=== PATIENT | female | born 1965 | race Caucasian/White ===

== ENCOUNTER 2017-09-25 10:15 | Emergency (ER) | payer OTHER ==
[2017-09-25 10:23] VITALS: BP 141/65; PULSE 62; TEMP 98.6; BMI 21.7
[2017-09-25] MEDS ORDERED: IBUPROFEN 600 MG TABLET (FP) PO ONE ×2 (10:28→10:30)
--- NOTE | 2017-09-25 10:34 | PDOC ---
History of Present Illness - General Chief Complaint: Injury Stated Complaint: LEFT FOOT INJURY Time Seen by Provider: 09/25/17 10:20 - History of Present Illness Initial Comments: 09/25/17 10:29 This 42-year-old female with a history of hypertension and hyperlipidemia presents with left ankle pain after tripping on a step yesterday. She reports the pain initially was mild and localized around the front of her foot but overnight the pain and swelling of her left foot became worse prompting her to come into the emergency department today she's been able to ambulate on her foot since the trip yesterday. No treatments tried. Denies any other injuries or fall. Denies head strike. Has been in her usual state of good health, denies any fevers, chills, chest pain, shortness of breath, abdominal pain, nausea, vomiting, diarrhea, urinary symptoms. Reports currently she is being worked up for abnormal vaginal bleeding at [facility]. He reports tubal ligation a few years ago and a negative test last week. Reports she is due for a endometrial biopsy in 3 days. Past History - Past Medical History Allergies/Adverse Reactions: Allergies Allergy/AdvReac Type Severity Reaction Status Date / Time No Known Drug Allergies Allergy Verified 09/25/17 10:17 Home Medications: Ambulatory Orders Atorvastatin Ca [Lipitor -] 40 mg PO HS 05/05/15 Losartan Potassium [Cozaar -] 25 mg PO DAILY 05/06/15 Asthma: Yes ("MILD") COPD: No HTN: Yes Hypercholesterolemia: Yes - Suicide/Smoking/Psychosocial Hx Smoking History: Never smoked Have you smoked in the past 12 months: No Information on smoking cessation initiated: No Hx Alcohol Use: No Drug/Substance Use Hx: No Substance Use Type: None Hx Substance Use Treatment: No Review of Systems - Review of Systems Comments:: 09/25/17 10:31 GENERAL/CONSTITUTIONAL: No fever or chills. No weakness. HEAD, EYES, EARS, NOSE AND THROAT: No change in vision. No ear pain or discharge. No sore throat. GASTROINTESTINAL: No nausea, vomiting, diarrhea or constipation. GENITOURINARY: No dysuria, frequency, or change in urination. CARDIOVASCULAR: No chest pain or shortness of breath. RESPIRATORY: No cough, wheezing, or hemoptysis. MUSCULOSKELETAL: +L foot pain. No neck or back pain. SKIN: No rash NEUROLOGIC: No headache, vertigo, loss of consciousness, or change in strength/ sensation. ENDOCRINE: No increased thirst. No abnormal weight change. HEMATOLOGIC/LYMPHATIC: No anemia, easy bleeding, or history of blood clots. ALLERGIC/IMMUNOLOGIC: No hives or skin allergy. *Physical Exam - Vital Signs Last Vital Signs Temp Pulse Resp BP Pulse Ox 98.6 F 62 18 141/65 100 09/25/17 10:15 09/25/17 10:15 09/25/17 10:15 09/25/17 10:15 09/25/17 10:15 - Physical Exam Comments: 09/25/17 10:32 GENERAL: Awake, alert, and fully oriented, in no acute distress HEAD: No signs of trauma EYES: PERRLA, EOMI, sclera anicteric, conjunctiva clear ENT: Auricles normal inspection, hearing grossly normal, nares patent, oropharynx clear without exudates. Moist mucosa NECK: Normal ROM, supple, no lymphadenopathy, JVD, or masses LUNGS: Breath sounds equal, clear to auscultation bilaterally. No wheezes, and no crackles HEART: Regular rate and rhythm, normal S1 and S2, no murmurs, rubs or gallops ABDOMEN: Soft, nontender, normoactive bowel sounds. No guarding, no rebound. No masses EXTREMITIES: Normal range of motion, 2+ DP and TP pulses b/l. Full strength and sensation of all extremities. No clubbing or cyanosis. +edema and ttp along forefront of L foot and L distal posterior aspect of lateral malleolus. NEUROLOGICAL: Normal speech, cranial nerves intact, negative pronator drift, 5/ 5 strength in all 4 extremities, normal sensation to light touch in all 4 extremities, normal cerebellar exam, gait deferred SKIN: Warm, Dry, normal turgor, no rashes or lesions noted. ED Treatment Course - RADIOLOGY Radiology Studies Ordered: Category Date Time Status ANKLE & FOOT-LEFT* [RAD] Stat Radiology 09/25/17 10:27 Ordered Medical Decision Making - Medical Decision Making 09/25/17 10:34 51-year-old female history of hypertension hyperlipidemia presents with left foot injury. Will obtain x-ray to evaluate for fracture and motrin for pain control. 09/25/17 12:44 X-ray negative for fracture. Pain well controlled with motrin. Deepak wrap and hard soled shoe applied, pt given crutches for comfort and to follow up with Dr. Poon with 1-3 days. I discussed the physical exam findings, ancillary test results and final diagnoses with the patient. I answered all of the patient's questions. The patient was satisfied with the care received and felt comfortable with the discharge plan and treatment plan. The patient will call their primary care physician within 24 hours to arrange follow-up and will return to the Emergency Department with any new, persistent or worsening symptoms. *DC/Admit/Observation/Transfer Diagnosis at time of Disposition: Foot injury - Discharge Dispostion Disposition: HOME Condition at time of disposition: Stable Admit: No - Referrals Referrals: Denny Poon MD [Staff Physician] - - Patient Instructions Printed Discharge Instructions: Ankle Sprain Additional Instructions: Call Dr. Poon's office today for follow-up appointment with an orthopedic doctor within 1- 3 days. Take ibuprofen 600 mg every 6 hours for pain and swelling. Apply ice to your foot 2-3 times a day. Return to emergency department if you have any new, worsening or concerning symptoms. - Post Discharge Activity - Attestations Physician Attestion: 09/25/17 12:52 I, Dr. Gio Plasencia MD, attest that this document has been prepared under my direction and personally reviewed by me in its entirety. I further attest, that it accurately reflects all work, treatment, procedures and medical decision -making performed by me.
== END 2017-09-25 13:09 | disposition home or self-care (01) ==
LOC: FER 10:15
DX: S99.922A Unspecified injury of left foot, initial encounter (principal); X58.XXXA Exposure to other specified factors, initial encounter; Y93.89 Activity, other specified; Y92.9 Unspecified place or not applicable; E78.5 Hyperlipidemia, unspecified; I10 Essential (primary) hypertension
CPT/HCPCS: 73610-TC-LT; 73630-TC-LT; 99283-25

== ENCOUNTER 2019-10-17 11:45 | Day surgery (SDC) | payer OTHER ==
[2019-10-14 16:52] VITALS: BMI 21.6
[2019-10-17 13:11] VITALS: TEMP 97.3
[2019-10-17 14:43] VITALS: BP 117/68; PULSE 57
== END 2019-10-17 14:14 | disposition home or self-care (01) ==
LOC: JASU-ENDO 11:45
PROVIDERS: ATTEND Internal Medicine Gastroenterology
PROC: 0DBM8ZX Excision of Descending Colon, Via Natural or Artificial Opening Endoscopic, Diagnostic (ICD-10-PCS; principal; 2019-10-17 12:30)
DX: Z12.11 Encounter for screening for malignant neoplasm of colon (principal); K64.8 Other hemorrhoids; K57.30 Diverticulosis of large intestine without perforation or abscess without bleeding; D12.4 Benign neoplasm of descending colon
CPT/HCPCS: 81025

== ENCOUNTER 2021-03-29 11:49 | Emergency (ER) | payer OTHER ==
[2021-03-29 12:05] VITALS: BP 157/84; PULSE 54; TEMP 98.7; BMI 21.6
[2021-03-29 12:36] LABS: BASO % 0.9 % (0-2.0); EOS % 0.7 % (0-4.5); HEMOGLOBIN 15.8 GM/dl (10.7-15.3); LYMPH % 15.6 % (8-40); MCH 29.5 pg (25.7-33.7); MCHC 33.6 g/dl (32.0-36.0); MEAN CELL VOLUME 87.8 fl (80-96); MONO % 4.9 % (3.8-10.2); NEUT % 77.9 % (42.8-82.8); PLATELET COUNT 251 K/MM3 (134-434); RBC 5.35 M/mm3 (3.60-5.2); RDW 15.8 % (11.6-15.6); WHITE BLOOD COUNT 6.3 K/mm3 (4.0-10.8)
[2021-03-29 12:45] LABS: ALBUMIN 4.6 g/dl (3.4-5.0); ANION GAP 8 MMOL/L (8-16); BILIRUBIN,TOTAL 1.2 mg/dl (0.2-1); CHLORIDE 100 mmol/L (98-107); CO2 29 mmol/L (21-32); CREATININE 0.6 mg/dl (0.55-1.3); GLUCOSE,RANDOM 95 mg/dl (74-106); SGOT/AST 23 U/L (15-37); SGPT/ALT 21 U/L (13-61); SODIUM 137 mmol/L (136-145)
[2021-03-29 12:47] LABS: ALK PHOS 49 U/L (45-117); TOT PROT 7.7 g/dl (6.4-8.2)
[2021-03-29] MEDS ORDERED: SODIUM CHLORIDE 0.9% 500 ML INFUS.BAG IV ONE (13:00)
[2021-03-29 13:47] LABS: LIPASE 132 U/L (73-393)
== END 2021-03-29 14:54 | disposition home or self-care (01) ==
LOC: FER 11:49
DX: R10.13 Epigastric pain (principal)
CPT/HCPCS: 36415; 71046-TC-FY; 80053; 81003; 82550; 83690; 84484; 85025; 87086; 87186; 93005; 99285-25

== ENCOUNTER 2021-04-03 13:45 | Inpatient (IN) | payer OTHER ==
[2021-04-03 14:02] VITALS: BMI 21.6
[2021-04-03] MEDS ORDERED: SODIUM CHLORIDE IVPB ONE (14:28)
[2021-04-03] MEDS ORDERED: DAPTOMYCIN IVPB ONE (14:28)
[2021-04-03 14:56] LABS: BASO % 1.9 % (0-2.0); EOS % 0.9 % (0-4.5); HEMATOCRIT 42.3 % (32.4-45.2); HEMOGLOBIN 14.3 GM/dl (10.7-15.3); LYMPH % 39.3 % (8-40); MCH 29.4 pg (25.7-33.7); MCHC 33.9 g/dl (32.0-36.0); MEAN CELL VOLUME 86.6 fl (80-96); MEAN PLT VOLUME 8.3 fl (7.5-11.1); NEUT % 51.9 % (42.8-82.8); PLATELET COUNT 226 10^3/uL (134-434); RBC 4.88 M/mm3 (3.60-5.2); RDW 14.9 % (11.6-15.6); WHITE BLOOD COUNT 5.7 K/mm3 (4.0-10.8)
[2021-04-03 15:04] LABS: ALBUMIN 4.4 g/dl (3.4-5.0); BILIRUBIN,TOTAL 0.8 mg/dl (0.2-1); CALCIUM 9.3 mg/dl (8.5-10); CREATININE 0.6 mg/dl (0.55-1.3); TOT PROT 7.2 g/dl (6.4-8.2)
[2021-04-03] MEDS ORDERED: ACETAMINOPHEN 325 MG TABLET (FP) PO PRN (20:21)
[2021-04-03] MEDS ORDERED: ATORVASTATIN CA 40 MG TABLET (FP) PO SCH (22:00)
[2021-04-03] MEDS: ATORVASTATIN CA 20 MG TABLET (FP) PO SCH (22:23)
[2021-04-04 08:18] LABS: BASO % 1.4 % (0-2.0); EOS % 1.9 % (0-4.5); HEMOGLOBIN 13.4 GM/dl (10.7-15.3); LYMPH % 40.8 % (8-40); MCH 28.3 pg (25.7-33.7); MCHC 32.7 g/dl (32.0-36.0); MEAN CELL VOLUME 86.5 fl (80-96); MEAN PLT VOLUME 8.5 fl (7.5-11.1); NEUT % 48.9 % (42.8-82.8); PLATELET COUNT 209 10^3/uL (134-434); RBC 4.75 M/mm3 (3.60-5.2); RDW 14.4 % (11.6-15.6); WHITE BLOOD COUNT 5.5 K/mm3 (4.0-10.8)
[2021-04-04 08:30] LABS: CREATININE 0.6 mg/dl (0.55-1.3)
[2021-04-04] MEDS: ENOXAPARIN NA (PORCINE) 40 MG/0.4 ML DISP.SYRIN SQ SCH (09:55)
[2021-04-04] MEDS ORDERED: LOSARTAN POTASSIUM 25 MG TABLET PO SCH (10:00)
[2021-04-04] MEDS: ATORVASTATIN CA 20 MG TABLET (FP) PO SCH (21:12)
[2021-04-04] MEDS ORDERED: LOSARTAN POTASSIUM 50 MG TABLET PO SCH (22:00)
[2021-04-05] MEDS: ENOXAPARIN NA (PORCINE) 40 MG/0.4 ML DISP.SYRIN SQ SCH (09:12)
[2021-04-05 10:54] VITALS: BP 133/74; PULSE 51; TEMP 98.2
== END 2021-04-05 10:50 | disposition home or self-care (01) | DRG 463 ==
LOC: FER 13:45 → FM/S 15:02
PROVIDERS: ADMIT Internal Medicine; ATTEND Nurse Practitioner Acute Care
DX: R82.71 Bacteriuria (principal); R10.13 Epigastric pain; I10 Essential (primary) hypertension; E78.5 Hyperlipidemia, unspecified; J45.909 Unspecified asthma, uncomplicated
CPT/HCPCS: 36415; 80048; 80053; 85025; 87040; 87491; 87591; 99285-25; C9803; J0878; U0003; U0005

== ENCOUNTER 2022-01-18 10:34 | Emergency (ER) | payer OTHER ==
[2022-01-18] MEDS ORDERED: IBUPROFEN 400 MG TABLET (FP) PO ONE ×2 (10:37→11:08)
[2022-01-18 10:47] VITALS: BP 140/97; PULSE 58; TEMP 97.9; BMI 23.7
[2022-01-18] MEDS ORDERED: LIDOCAINE 5% TOPICAL PATCH TP ONE (11:06)
[2022-01-18] MEDS ORDERED: LIDOCAINE 5% TOPICAL PATCH ONE (11:08)
[2022-01-18] MEDS ORDERED: LIDOCAINE PATCH REMOVAL MC SCH (22:00)
== END 2022-01-18 11:28 | disposition home or self-care (01) ==
LOC: FER 10:34
DX: M54.50 Low back pain, unspecified (principal)
CPT/HCPCS: 99283-25

== ENCOUNTER 2022-09-19 12:25 | Emergency (ER) | payer OTHER ==
[2022-09-19 12:38] VITALS: RESP 16; TEMP 98.7; BMI 22.4
[2022-09-19] MEDS ORDERED: ACETAMINOPHEN 325 MG TABLET (FP) PO ONE (14:12)
[2022-09-19] MEDS ORDERED: ACETAMINOPHEN 325 MG TABLET (FP) ONE (14:16)
[2022-09-19 14:21] VITALS: BP 162/95; PULSE 51
== END 2022-09-19 14:21 | disposition home or self-care (01) ==
LOC: FER 12:25
DX: G44.219 Episodic tension-type headache, not intractable (principal); I10 Essential (primary) hypertension
CPT/HCPCS: 99283-25

== ENCOUNTER 2023-09-27 16:35 | Observation (INO) | payer OTHER ==
[2023-09-27 16:56] VITALS: BMI 23.3
[2023-09-27] MEDS ORDERED: IBUPROFEN 400 MG TABLET (FP) PO ONE ×2 (17:37→18:16)
[2023-09-27 18:26] LABS: BASO % 0.6 % (0-2.0); EOS % 1.2 % (0-4.5); HEMATOCRIT 42.8 % (32.4-45.2); HEMOGLOBIN 14.2 GM/dL (10.7-15.3); LYMPH % 34.5 % (8-40); MCH 28.8 pg (25.7-33.7); MCHC 33.2 g/dl (32.0-36.0); MEAN CELL VOLUME 86.7 fl (80-96); MEAN PLT VOLUME 7.8 fl (7.5-11.1); NEUT % 57.7 % (42.8-82.8); PLATELET COUNT 251 10^3/uL (134-434); RBC 4.93 M/mm3 (3.60-5.2); WHITE BLOOD COUNT 6.5 K/mm3 (4.0-10.0)
[2023-09-27 18:35] LABS: INR 0.94 (0.83-1.09); PROTHROMBIN TIME (PATIENT) 10.9 SEC (9.7-13.0)
[2023-09-27 18:38] LABS: ACTIVATED PTT 34.9 SECONDS (25.2-36.5)
[2023-09-27 19:03] LABS: POTASSIUM 3.9 mmol/L (3.5-5.1)
[2023-09-27 19:06] LABS: BLOOD UREA NITROGEN 15.3 mg/dL (7-18)
[2023-09-27 19:09] LABS: CREATININE 0.6 mg/dL (0.55-1.3)
[2023-09-27 19:10] LABS: BILIRUBIN,TOTAL 0.4 mg/dL (0.2-1); TOT PROT 7.3 g/dl (6.4-8.2)
[2023-09-28] MEDS ORDERED: LIDOCAINE 4% PATCH TP ONE ×2 (01:00→01:45)
[2023-09-28] MEDS ORDERED: SIMETHICONE 80 MG TAB.CHEW (FP) PO ONE (03:40)
[2023-09-28] MEDS ORDERED: SIMETHICONE 80 MG TAB.CHEW (FP) ONE (04:59)
[2023-09-28] MEDS ORDERED: ATORVASTATIN CA 20 MG TABLET (FP) PO ONE (11:56)
[2023-09-28] MEDS ORDERED: PANTOPRAZOLE 40 MG TABLET PO ONE (11:56)
[2023-09-28] MEDS ORDERED: CLOPIDOGREL BISULFATE 300 MG TABLET PO ONE (11:56)
[2023-09-28] MEDS ORDERED: ASPIRIN COATED 81 MG TABLET.EC ONE (11:58)
[2023-09-28] MEDS ORDERED: LOSARTAN POTASSIUM 50 MG TABLET ONE (11:58)
[2023-09-28] MEDS ORDERED: ENOXAPARIN NA (PORCINE) 40 MG/0.4 ML DISP.SYRIN SQ ONE (11:58)
[2023-09-28] MEDS: LOSARTAN POTASSIUM 50 MG TABLET PO SCH (12:06)
[2023-09-28] MEDS: ENOXAPARIN NA (PORCINE) 40 MG/0.4 ML DISP.SYRIN SQ SCH (12:07)
[2023-09-28] MEDS: ASPIRIN COATED 81 MG TABLET.EC PO SCH (12:07)
[2023-09-28] MEDS ORDERED: ATORVASTATIN CA 80 MG TABLET (FP) ONE (12:14)
[2023-09-28] MEDS ORDERED: LIDOCAINE PATCH REMOVAL MC ONE (13:00)
[2023-09-28] MEDS ORDERED: ATORVASTATIN CA 20 MG TABLET (FP) PO SCH (22:00)
[2023-09-29] MEDS ORDERED: ACETAMINOPHEN 1000 MG/100 ML BAG IVPB PRN (00:24)
[2023-09-29] MEDS ORDERED: ACETAMINOPHEN 325 MG TABLET (FP) ONE (00:24)
[2023-09-29] MEDS: LOSARTAN POTASSIUM 50 MG TABLET PO SCH (09:51)
[2023-09-29] MEDS: ASPIRIN COATED 81 MG TABLET.EC PO SCH (09:51)
[2023-09-29] MEDS: ENOXAPARIN NA (PORCINE) 40 MG/0.4 ML DISP.SYRIN SQ SCH (09:51)
[2023-09-29 09:53] VITALS: RESP 14; TEMP 98.3
[2023-09-29 16:28] VITALS: BP 130/98; PULSE 71
== END 2023-09-29 16:00 | disposition short-term general hospital (02) ==
LOC: JER 16:35 → JERBED 09-28 00:08
PROVIDERS: ADMIT Internal Medicine
PROC: 3E023GC Introduction of Other Therapeutic Substance into Muscle, Percutaneous Approach (ICD-10-PCS; principal; 2023-09-28)
DX: R07.89 Other chest pain (principal); R01.1 Cardiac murmur, unspecified; I10 Essential (primary) hypertension; E78.5 Hyperlipidemia, unspecified; F41.9 Anxiety disorder, unspecified
CPT/HCPCS: 0241U-QW; 36415; 71046-TC-FY; 80053; 80061; 84443; 84484; 85025; 85379; 85610; 85730; 93005; 93010; 93306-TC; 96372; 99285-25; G0378

== ENCOUNTER 2024-05-13 17:00 | Emergency (ER) | payer OTHER ==
[2024-05-13 17:15] VITALS: BP 125/80; PULSE 66; RESP 18; TEMP 99.9; BMI 22.4
[2024-05-13] MEDS ORDERED: LIDOCAINE VISCOUS 2% ORAL/TOP 15 ML UNIT-DOSE CUP ONE (17:57)
[2024-05-13] MEDS: LIDOCAINE VISCOUS 2% ORAL/TOP 15 ML UNIT-DOSE CUP MM ONE (17:59)
[2024-05-13 20:20] LABS: THROAT:GRP A STREP NOT DETECTED (NOTDETECTED)
== END 2024-05-13 19:15 | disposition home or self-care (01) ==
LOC: FER 17:00
DX: R05.9 Cough, unspecified (principal); J02.9 Acute pharyngitis, unspecified; R49.0 Dysphonia; H57.89 Other specified disorders of eye and adnexa; Z20.822 Contact with and (suspected) exposure to COVID-19
CPT/HCPCS: 0241U-QW; 71046-TC-FY; 87651; 99284-25